=== PATIENT | male | born 1965 | race Two or more races ===

== ENCOUNTER 2020-06-06 22:53 | Inpatient (IN) | payer MEDICAID, OTHER ==
[~2020-06-06] VITALS: Ht 172.7 cm; Wt 87.1 kg
[2020-06-06 23:28] LABS: EOSINOPHILS % (AUTO) 1.3 % (1.0-6.0); HEMATOCRIT 49.4 % (41-53); HEMOGLOBIN 16.3 g/dL (13.5-17.5); LYMPHOCYTES # (AUTO) 2.3 K/uL (1.0-4.8); LYMPHOCYTES % (AUTO) 32.4 % (22.0-44.0); MEAN CORPUSCULAR HEMOGLOBIN 33.1 pg (26.0-34.0); MEAN CORPUSCULAR HGB CONC 32.9 G/dL (31.0-37.0); MEAN CORPUSCULAR VOLUME 100 fL (80-100); MONOCYTES # (AUTO) 0.5 K/uL (0.1-1.0); NEUTROPHILS # (AUTO) 4.1 K/uL (1.8-7.7); NEUTROPHILS % (AUTO) 58.3 % (40.0-70.0); PLATELET COUNT (AUTO) 250 K/uL (150-450); RED BLOOD CELL COUNT(AUTO) 4.92 MIL/uL (4.50-5.90); RED CELL DISTRIBUTION WIDTH 13.1 % (11.5-14.5)
[2020-06-06 23:47] LABS: ANION GAP 10 mmol/L (8-16); CALCIUM, TOTAL 9.3 mg/dL (8.8-10.5); CARBON DIOXIDE 27 mmol/L (22-29); CHLORIDE 100 mmol/L (98-107); CREATININE 1.03 mg/dL (0.60-1.30); GLOMERULAR FILTR. RATE CALC > 60 mL/min (>60); GLUCOSE,RANDOM 103 mg/dL (70-110); POTASSIUM 4.2 mmol/L (3.5-5.1); SODIUM SERUM 137 mmol/L (136-145); UREA NITROGEN, BLOOD 13 mg/dL (7-18)
[2020-06-06 23:54] LABS: ALANINE AMINOTRANSFERASE 59 U/L (12-78); ALBUMIN 4.5 g/dL (3.4-5.0); ALKALINE PHOSPHATASE 54 U/L (46-116); ASPARTATE AMINOTRANSFERASE 38 U/L (15-37); BILIRUBIN,TOTAL 1.6 mg/dL (0.1-1.0); TOTAL PROTEIN, SERUM 9.1 g/dL (6.4-8.2)
[2020-06-06 23:55] LABS: COVID AG,FIA SOURCE NASOPHARYNGEAL
[2020-06-07] VITALS (11 sets, daily range): BP systolic 136–164; BP diastolic 78–100
[2020-06-07] MEDS ORDERED: PERTUSS(ACELL),DIPH,TET VAC/PF 0.5 ML VIAL IM ONE (00:30)
[2020-06-07] MEDS ORDERED: BACITRACIN 0.9 GM PACKET OINTMENT TP ONE (00:30)
[2020-06-07] MEDS ORDERED: LORazepam 2 MG TABLET PO PRN ×2 (01:45→15:15)
[2020-06-07] MEDS ORDERED: HALOPERIDOL 5 MG TABLET PO PRN (01:45)
[2020-06-07] MEDS ORDERED: ZOLPIDEM TARTRATE 10 MG TABLET PO PRN (01:45)
[2020-06-07] MEDS ORDERED: DOCUSATE SODIUM 100 MG CAPSULE PO PRN (10:30)
[2020-06-07] MEDS ORDERED: MAG HYDROX/AL HYDROX/SIMETH ES 30 ML SUSPENSION UDCUP PO PRN (10:30)
[2020-06-07] MEDS ORDERED: ACETAMINOPHEN 325 MG TABLET PO PRN (10:30)
[2020-06-07] MEDS ORDERED: LOPERAMIDE HCL 2 MG CAPSULE PO PRN (10:30)
[2020-06-07] MEDS ORDERED: ALBUTEROL SULFATE HFA 90 MCG/PUFF 8 GM INHALER IH PRN (10:30)
[2020-06-07] MEDS ORDERED: NICOTINE 14 MG/24 HOUR PATCH TD PRN (10:30)
[2020-06-07] MEDS ORDERED: PETROLATUM,WHITE 28 GM JELLY TP PRN (10:30)
[2020-06-07] MEDS ORDERED: ONDANSETRON HCL 4 MG TABLET PO PRN (10:30)
[2020-06-07] MEDS ORDERED: CloNIDine HCL 0.1 MG TABLET PO PRN (10:30)
[2020-06-07] MEDS ORDERED: MAGNESIUM HYDROXIDE SUSPENSION 30 ML UDCUP PO PRN (10:30)
[2020-06-07] MEDS ORDERED: GuaiFENesin/D-METHORPHAN [SUGAR-FREE] 200-20MG/10 ML SYRUP UDCUP PO PRN (10:30)
[2020-06-07] MEDS ORDERED: IBUPROFEN 400 MG TABLET PO PRN (10:30)
[2020-06-07] MEDS ORDERED: CYANOCOBALAMIN 1,000 MCG/ML VIAL IM ONE (15:15)
[2020-06-07] MEDS: THIAMINE 100 MG TABLET PO SCH (15:23)
[2020-06-07] MEDS: MULTIVITAMINS WITH MINERALS, THERAPEUTIC TABLET PO SCH (15:23)
[2020-06-07] MEDS: FOLIC ACID 1 MG TABLET PO SCH (15:27)
[2020-06-08 03:11] VITALS: BP 140/80
[2020-06-08] MEDS ORDERED: LORazepam 2 MG TABLET PO PRN (07:00)
[2020-06-08 07:11] VITALS: BP 133/76
[2020-06-08 07:12] LABS: CHOL/HDL RATIO 4.3 (4.2-7.3)
[2020-06-08 08:27] VITALS: BP 136/74
[2020-06-08] MEDS: LORazepam 2 MG TABLET PO SCH ×4 (08:58→20:01)
[2020-06-08] MEDS: FOLIC ACID 1 MG TABLET PO SCH (08:58)
[2020-06-08] MEDS: THIAMINE 100 MG TABLET PO SCH ×2 (08:58→16:26)
[2020-06-08] MEDS: MULTIVITAMINS WITH MINERALS, THERAPEUTIC TABLET PO SCH (08:58)
[2020-06-08 11:11] VITALS: BP 151/76
[2020-06-08 15:11] VITALS: BP 110/74
[2020-06-08 19:11] VITALS: BP 115/65
[2020-06-09 00:11] VITALS: BP 116/71
[2020-06-09 04:10] VITALS: BP 100/60
[2020-06-09 08:28] VITALS: BP 111/64
[2020-06-09 08:35] VITALS: BP 111/64
[2020-06-09] MEDS: FOLIC ACID 1 MG TABLET PO SCH (08:47)
[2020-06-09] MEDS: LORazepam 2 MG TABLET PO SCH ×4 (08:48→20:41)
[2020-06-09] MEDS: THIAMINE 100 MG TABLET PO SCH ×2 (08:48→16:30)
[2020-06-09] MEDS: MULTIVITAMINS WITH MINERALS, THERAPEUTIC TABLET PO SCH (08:48)
[2020-06-09 16:00] VITALS: BP 137/79
[2020-06-09 16:20] VITALS: BP 137/79
[2020-06-10 06:54] VITALS: BP 114/62
[2020-06-10] MEDS ORDERED: LORazepam 1 MG TABLET PO PRN (07:00)
[2020-06-10 08:00] VITALS: BP 108/66
[2020-06-10] MEDS: THIAMINE 100 MG TABLET PO SCH ×2 (08:14→16:30)
[2020-06-10] MEDS: FOLIC ACID 1 MG TABLET PO SCH (08:14)
[2020-06-10] MEDS: LORazepam 1 MG TABLET PO SCH ×4 (08:14→20:24)
[2020-06-10] MEDS: MULTIVITAMINS WITH MINERALS, THERAPEUTIC TABLET PO SCH (08:14)
[2020-06-10 16:09] VITALS: BP 113/68
[2020-06-10 17:15] VITALS: BP 113/68
[2020-06-11 03:22] VITALS: BP 117/71
[2020-06-11] MEDS ORDERED: LORazepam 1 MG TABLET PO PRN (07:00)
[2020-06-11 08:02] VITALS: BP 110/71
[2020-06-11] MEDS: MULTIVITAMINS WITH MINERALS, THERAPEUTIC TABLET PO SCH (08:51)
[2020-06-11] MEDS: THIAMINE 100 MG TABLET PO SCH (08:51)
[2020-06-11] MEDS: FOLIC ACID 1 MG TABLET PO SCH (08:51)
[2020-06-11 10:09] VITALS: BP 114/76
== END 2020-06-11 14:50 | disposition home or self-care (01) | DRG 751 ==
LOC: EMS 22:53 → 3EI 06-07 01:34
DX: F33.2 Major depressive disorder, recurrent severe without psychotic features (principal); Z20.822 Contact with and (suspected) exposure to COVID-19; F10.229 Alcohol dependence with intoxication, unspecified; R45.851 Suicidal ideations; Z82.0 Family history of epilepsy and other diseases of the nervous system
CPT/HCPCS: 87426; 90715; 99285; G0480

== ENCOUNTER 2020-06-11 22:30 | Inpatient (IN) | payer MEDICAID, OTHER ==
[~2020-06-11] VITALS: Ht 172.7 cm; Wt 85.4 kg
[2020-06-12] MEDS ORDERED: SODIUM CHLORIDE 0.9% 1,000 ML IV ONE (00:15)
[2020-06-12 00:51] LABS: COVID AG,FIA SOURCE NASOPHARYNGEAL
[2020-06-12 00:55] LABS: BASOPHILS % (AUTO) 0.3 % (0.0-2.0); EOSINOPHILS % (AUTO) 0.1 % (1.0-6.0); HEMATOCRIT 46.7 % (41-53); HEMOGLOBIN 15.9 g/dL (13.5-17.5); LYMPHOCYTES # (AUTO) 1.5 K/uL (1.0-4.8); LYMPHOCYTES % (AUTO) 21.4 % (22.0-44.0); MEAN CORPUSCULAR HEMOGLOBIN 33.7 pg (26.0-34.0); MEAN CORPUSCULAR VOLUME 99 fL (80-100); MONOCYTES # (AUTO) 0.4 K/uL (0.1-1.0); NEUTROPHILS % (AUTO) 72.2 % (40.0-70.0); PLATELET COUNT (AUTO) 240 K/uL (150-450); RED BLOOD CELL COUNT(AUTO) 4.72 MIL/uL (4.50-5.90)
[2020-06-12] MEDS ORDERED: LORazepam 2 MG TABLET PO PRN (01:15)
[2020-06-12] MEDS ORDERED: QUEtiapine FUMARATE 100 MG TABLET PO PRN (01:15)
[2020-06-12] MEDS ORDERED: ZOLPIDEM TARTRATE 10 MG TABLET PO PRN (01:15)
[2020-06-12 01:29] LABS: ANION GAP 10 mmol/L (8-16); CALCIUM, TOTAL 8.9 mg/dL (8.8-10.5); CARBON DIOXIDE 25 mmol/L (22-29); CHLORIDE 99 mmol/L (98-107); CREATININE 0.93 mg/dL (0.60-1.30); GLOMERULAR FILTR. RATE CALC > 60 mL/min (>60); GLUCOSE,RANDOM 139 mg/dL (70-110); POTASSIUM 3.3 mmol/L (3.5-5.1); SODIUM SERUM 134 mmol/L (136-145); UREA NITROGEN, BLOOD 13 mg/dL (7-18)
[2020-06-12 01:35] LABS: ALANINE AMINOTRANSFERASE 139 U/L (12-78); ALBUMIN 4.4 g/dL (3.4-5.0); ALKALINE PHOSPHATASE 57 U/L (46-116); ASPARTATE AMINOTRANSFERASE 100 U/L (15-37); TOTAL PROTEIN, SERUM 8.7 g/dL (6.4-8.2)
[2020-06-12 01:54] LABS: SALICYLATE 0.9 mg/dL (2.8-20.0)
[2020-06-12 01:58] LABS: ACETAMINOPHEN 119 mcg/mL (10-30)
[2020-06-12 03:36] LABS: ALANINE AMINOTRANSFERASE 128 U/L (12-78); ALBUMIN 3.7 g/dL (3.4-5.0); ALKALINE PHOSPHATASE 49 U/L (46-116); ANION GAP 10 mmol/L (8-16); ASPARTATE AMINOTRANSFERASE 93 U/L (15-37); BILIRUBIN,TOTAL 0.7 mg/dL (0.1-1.0); CARBON DIOXIDE 23 mmol/L (22-29); CHLORIDE 104 mmol/L (98-107); CREATININE 0.89 mg/dL (0.60-1.30); GLOMERULAR FILTR. RATE CALC > 60 mL/min (>60); GLUCOSE,RANDOM 103 mg/dL (70-110); POTASSIUM 3.8 mmol/L (3.5-5.1); SODIUM SERUM 137 mmol/L (136-145); TOTAL PROTEIN, SERUM 7.2 g/dL (6.4-8.2); UREA NITROGEN, BLOOD 11 mg/dL (7-18)
[2020-06-12 03:40] LABS: ACETAMINOPHEN 74 mcg/mL (10-30)
[2020-06-12] MEDS ORDERED: GuaiFENesin/D-METHORPHAN [SUGAR-FREE] 200-20MG/10 ML SYRUP UDCUP PO PRN (07:00)
[2020-06-12] MEDS ORDERED: ACETAMINOPHEN 325 MG TABLET PO PRN (07:00)
[2020-06-12] MEDS ORDERED: IBUPROFEN 400 MG TABLET PO PRN (07:00)
[2020-06-12] MEDS ORDERED: ALBUTEROL SULFATE HFA 90 MCG/PUFF 8 GM INHALER IH PRN (07:00)
[2020-06-12] MEDS ORDERED: PETROLATUM,WHITE 28 GM JELLY TP PRN (07:00)
[2020-06-12] MEDS ORDERED: MAG HYDROX/AL HYDROX/SIMETH ES 30 ML SUSPENSION UDCUP PO PRN (07:00)
[2020-06-12] MEDS ORDERED: MAGNESIUM HYDROXIDE SUSPENSION 30 ML UDCUP PO PRN (07:00)
[2020-06-12] MEDS ORDERED: ONDANSETRON HCL 4 MG TABLET PO PRN (07:00)
[2020-06-12] MEDS ORDERED: CloNIDine HCL 0.1 MG TABLET PO PRN (07:00)
[2020-06-12] MEDS ORDERED: LOPERAMIDE HCL 2 MG CAPSULE PO PRN (07:00)
[2020-06-12] MEDS ORDERED: DOCUSATE SODIUM 100 MG CAPSULE PO PRN (07:00)
[2020-06-12] MEDS ORDERED: NICOTINE 14 MG/24 HOUR PATCH TD PRN (07:00)
[2020-06-12 09:03] VITALS: BP 143/96
[2020-06-12 09:17] VITALS: BP 143/96
[2020-06-12] MEDS: SERTRALINE HCL 50 MG TABLET PO SCH (12:27)
[2020-06-12 16:00] VITALS: BP 132/78
[2020-06-13] MEDS: SERTRALINE HCL 50 MG TABLET PO SCH (08:05)
[2020-06-13 08:09] LABS: CHOL/HDL RATIO 4.6 (4.2-7.3)
[2020-06-13 09:41] VITALS: BP 148/78
[2020-06-13 16:00] VITALS: BP 163/90
[2020-06-14] MEDS: SERTRALINE HCL 50 MG TABLET PO SCH (08:13)
[2020-06-14 09:13] VITALS: BP 139/73
[2020-06-14 16:00] VITALS: BP 149/88
[2020-06-15] MEDS: SERTRALINE HCL 50 MG TABLET PO SCH (08:01)
[2020-06-15 10:07] VITALS: BP 132/89
[2020-06-15 16:00] VITALS: BP 133/79
[2020-06-16] MEDS: SERTRALINE HCL 50 MG TABLET PO SCH (08:27)
[2020-06-16 09:44] VITALS: BP 140/97
[2020-06-16 16:00] VITALS: BP 138/95
[2020-06-17 10:04] VITALS: BP 143/98
[2020-06-17] MEDS: SERTRALINE HCL 50 MG TABLET PO SCH (10:32)
[2020-06-17] MEDS ORDERED: SERT50TA12 PO (13:24)
== END 2020-06-17 19:10 | disposition home or self-care (01) | DRG 751 ==
LOC: EMS 22:30 → 3EI 06-12 01:13
DX: F33.2 Major depressive disorder, recurrent severe without psychotic features (principal); F10.10 Alcohol abuse, uncomplicated; E87.6 Hypokalemia; E11.9 Type 2 diabetes mellitus without complications; I10 Essential (primary) hypertension; Z20.822 Contact with and (suspected) exposure to COVID-19; T39.311A Poisoning by propionic acid derivatives, accidental (unintentional), initial encounter; T39.1X1A Poisoning by 4-Aminophenol derivatives, accidental (unintentional), initial encounter; Y92.89 Other specified places as the place of occurrence of the external cause
CPT/HCPCS: 87081; 87426; 93005; 99291; G0480; G0481